=== PATIENT | female | born 2000 | race Caucasian/White ===

== ENCOUNTER → 2024-04-08 13:30 | Outpatient (REF) | payer OTHER, SELFPAY | LOC: RAD 13:30 | PROVIDERS: ATTENDING PHYSICIAN Physical Medicine & Rehabilitation; FAMILY PHYSICIAN Family Medicine | DX: S73.101A Unspecified sprain of right hip, initial encounter (principal) | CPT/HCPCS: 27093; 73525 ==

== ENCOUNTER → 2024-06-09 18:34 | Outpatient (REF) | payer OTHER, SELFPAY | LOC: MRI 18:34 | PROVIDERS: FAMILY PHYSICIAN Family Medicine | DX: D48.0 Neoplasm of uncertain behavior of bone and articular cartilage (principal) | CPT/HCPCS: 73720; A9575 ==

== ENCOUNTER 2024-12-12 07:10 | Outpatient (RCR) | payer OTHER, SELFPAY | END 2024-12-12 23:59 | disposition home or self-care (01) | LOC: RPT 07:10 | PROVIDERS: ATTENDING PHYSICIAN Obstetrics & Gynecology; FAMILY PHYSICIAN Family Medicine | DX: N94.819 Vulvodynia, unspecified (principal); N94.10 Unspecified dyspareunia; Z73.6 Limitation of activities due to disability; M62.81 Muscle weakness (generalized) | CPT/HCPCS: 97163; 97530 ==

== ENCOUNTER 2025-01-17 16:47 | Outpatient (RCR) | payer OTHER, SELFPAY | END 2025-01-17 23:59 | disposition home or self-care (01) | LOC: RPT 16:47 | PROVIDERS: ATTENDING PHYSICIAN Obstetrics & Gynecology; FAMILY PHYSICIAN Family Medicine | DX: N94.819 Vulvodynia, unspecified (principal); N94.10 Unspecified dyspareunia; Z73.6 Limitation of activities due to disability; M62.81 Muscle weakness (generalized) | CPT/HCPCS: 97112; 97140; 97530 ==

== ENCOUNTER 2025-02-22 16:57 | Outpatient (RCR) | payer OTHER, SELFPAY | END 2025-02-22 23:59 | disposition home or self-care (01) | LOC: RPT 16:57 | PROVIDERS: ATTENDING PHYSICIAN Obstetrics & Gynecology; FAMILY PHYSICIAN Family Medicine | DX: N94.819 Vulvodynia, unspecified (principal); N94.10 Unspecified dyspareunia; Z73.6 Limitation of activities due to disability; M62.81 Muscle weakness (generalized) | CPT/HCPCS: 97110; 97112; 97140; 97530 ==

== ENCOUNTER 2025-03-22 13:31 | Outpatient (RCR) | payer OTHER, SELFPAY | END 2025-03-22 23:59 | disposition home or self-care (01) | LOC: RPT 13:31 | PROVIDERS: ATTENDING PHYSICIAN Obstetrics & Gynecology; FAMILY PHYSICIAN Family Medicine | DX: N94.819 Vulvodynia, unspecified (principal); N94.10 Unspecified dyspareunia; Z73.6 Limitation of activities due to disability; M62.81 Muscle weakness (generalized) | CPT/HCPCS: 97014; 97112; 97140; 97530 ==

== ENCOUNTER 2025-04-24 09:33 | Outpatient (RCR) | payer OTHER, SELFPAY | END 2025-04-24 23:59 | disposition home or self-care (01) | LOC: RPT 09:33 | PROVIDERS: ATTENDING PHYSICIAN Obstetrics & Gynecology; FAMILY PHYSICIAN Family Medicine | DX: N94.819 Vulvodynia, unspecified (principal); N94.10 Unspecified dyspareunia; Z73.6 Limitation of activities due to disability; M62.81 Muscle weakness (generalized) | CPT/HCPCS: 97110; 97112; 97140; 97530 ==